=== PATIENT | female | born 1955 | race American Indian/Alaskan Native ===

== ENCOUNTER 2019-06-26 10:46 | Outpatient (CLI) | payer OTHER ==
--- NOTE | 2019-06-26 12:59 | Mammography Report ---
DIGITAL SCREENING MAMMOGRAM WITH CAD, 06/26/2019 INDICATION: Routine screening mammography. TECHNIQUE: Digital bilateral 2D mammography was obtained in the craniocaudal and mediolateral obliq ue projections. This examination was interpreted with the benefit of Computer-Aided Detection analysi s. COMPARISON: 04/23/2012 FINDINGS: Breast Density: The breasts are almost entirely fatty. There is no evidence of dominant mass, suspicious calcifications or architectural distortion in eithe r breast. IMPRESSION: No mammographic evidence of malignancy. Follow up recommendation: Routine yearly BI-RADS Category 1: Negative. A "normal" or negative report should not discourage follow up or biopsy of a clinically significant f inding. A written summary of these findings will be mailed to the patient. The patient will be entered into a mammography reporting system which will generate a reminder letter for the patient's next appointmen t at the appropriate interval. 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 Breast MRI is recommended for women with an approximate 20-25% or greater lifetime risk of breast cancer, including women with a strong family history of breast or [place]va [place] cancer or who have been treated for Hodgkin's disease. Signer Name: Ramesh Arguelles MD Signed: 06/26/2019 12:54 PM Workstation Name: [id number]
== END 2019-06-26 10:47 | disposition home or self-care (01) ==
LOC: MAMMO 10:46
PROVIDERS: ATTEND Family Medicine
DX: Z12.31 Encounter for screening mammogram for malignant neoplasm of breast (principal); I10 Essential (primary) hypertension
CPT/HCPCS: 77067

== ENCOUNTER 2020-07-01 14:22 | Outpatient (CLI) | payer OTHER ==
--- NOTE | 2020-07-02 08:11 | Mammography Report ---
DIGITAL SCREENING MAMMOGRAM WITH CAD, 07/01/2020 INDICATION: Routine screening mammography. TECHNIQUE: Digital bilateral 2D mammography was obtained in the craniocaudal and mediolateral obliq ue projections. This examination was interpreted with the benefit of Computer-Aided Detection analysi s. COMPARISON: 06/26/2019, 04/23/2012 FINDINGS: Breast Density: The breasts are almost entirely fatty. There is no evidence of dominant mass, suspicious calcifications or architectural distortion in eithe r breast. IMPRESSION: Follow up recommendation: Routine yearly BI-RADS Category 1: Negative. A "normal" or negative report should not discourage follow up or biopsy of a clinically significant f inding. A written summary of these findings will be mailed to the patient. The patient will be entered into a mammography reporting system which will generate a reminder letter for the patient's next appointmen t at the appropriate interval. 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 Breast MRI is recommended for women with an approximate 20-25% or greater lifetime risk of breast cancer, including women with a strong family history of breast or [place] cancer or who have been treated for Hodgkin's disease. Signer Name: Claudy Melara MD Signed: 07/02/2020 8:06 AM Workstation Name: [email or web address]
== END 2020-07-01 14:23 | disposition home or self-care (01) ==
LOC: MAMMO 14:22
PROVIDERS: ATTEND Family Medicine
DX: Z12.31 Encounter for screening mammogram for malignant neoplasm of breast (principal); N64.89 Other specified disorders of breast
CPT/HCPCS: 77067

== ENCOUNTER 2021-07-15 13:32 | Outpatient (CLI) | payer OTHER ==
--- NOTE | 2021-07-15 16:38 | Mammography Report ---
DEXA BONE DENSITY SCAN INDICATION / CLINICAL INFORMATION: OSTEOPOROSIS. 65 years Female COMPARISON: None available. LUMBAR SPINE, L1-L4: - Bone mineral density (BMD) = 1.382 g/cm2. - T-score = 3.0 - Z-score = 4.0 Change (%) since most recent prior (if available): None available. RIGHT HIP, : -Not performed. LEFT HIP, NECK : - Bone mineral density (BMD) = 0.960 g/cm2. - T-score = 1.0 - Z-score = 1.3 Change (%) since most recent prior (if available): None available. IMPRESSION: WHO Classification: Normal bone density. Fracture Risk: Not Increased. Note: 10-Year Fracture Risk (FRAX) not reported. This DEXA unit lacks FRAX functionality. BMD Reporting Guidelines (ISCD, 2015) BMD Reporting in Postmenopausal Women and in Men Age 50 and Older - T-scores are preferred. - The WHO densitometric classification is applicable. BMD Reporting in Females Prior to Menopause and in Males Younger Than Age 50 - Z-scores, not T-scores, are preferred. This is particularly important in children. - A Z-score of -2.0 or lower is defined as below the expected range for age, and a Z-score above -2.0 is within the expected range for age. - Osteoporosis cannot be diagnosed in men under age 50 on the basis of BMD alone. - The WHO diagnostic criteria may be applied to women in the menopausal transition. http://www.iscd.org/official-positions/1515-gcxs-mrrflajn-positions-adult/ Signer Name: Juan Mcintyre MD Signed: 07/15/2021 4:34 PM Workstation Name: [id number]
--- NOTE | 2021-07-18 10:45 | Mammography Report ---
DIGITAL SCREENING MAMMOGRAM WITH CAD, 07/15/2021 CLINICAL INFORMATION / INDICATION: Routine screening mammography. TECHNIQUE: Digital bilateral 2D mammography was obtained in the craniocaudal and mediolateral obliqu e projections. This examination was interpreted with the benefit of Computer-Aided Detection analysis . COMPARISON: Prior mammograms 07/01/2020 and 06/26/2019 FINDINGS: Breast Density: The breasts are almost entirely fatty. No dominant mass, suspicious calcifications, or architectural distortion in either breast. There has been no significant change compared with the prior examinations. IMPRESSION: No mammographic evidence of malignancy. Follow up recommendation: Routine yearly BI-RADS Category 1: Negative. A "normal" or negative report should not discourage follow up or biopsy of a clinically significant f inding. A written summary of these findings will be mailed to the patient. The patient will be entered into a mammography reporting system which will generate a reminder letter for the patient's next appointmen t at the appropriate interval. 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 Breast MRI is recommended for women with an approximate 20-25% or greater lifetime risk of breast cancer, including women with a strong family history of breast or [place] cancer or who have been treated for Hodgkin's disease. Signer Name: Mable Leos MD Signed: 07/18/2021 10:40 AM Workstation Name: [id number]
== END 2021-07-15 13:33 | disposition home or self-care (01) ==
LOC: MAMMO 13:32
PROVIDERS: ATTEND Family Medicine
DX: Z12.31 Encounter for screening mammogram for malignant neoplasm of breast (principal); Z13.820 Encounter for screening for osteoporosis; N95.8 Other specified menopausal and perimenopausal disorders
CPT/HCPCS: 77067; 77080